=== PATIENT | male | born 1960 | race Caucasian/White ===

== ENCOUNTER 2025-02-20 10:56 | Emergency (ER) | payer BC, SELFPAY ==
[2025-02-20 11:04] VITALS: BP 122/75; PULSE 78; RESP 20; TEMP 37.3; O2SAT 100
--- NOTE | 2025-02-20 11:36 | ED.FEVER ---
HPI - Fever General Chief Complaint: Fever Stated Complaint: Body Aches/Fever/Back Pain Time Seen by Provider: 02/20/25 11:36 Mode of arrival: ambulatory Limitations: no limitations History of Present Illness HPI Narrative: 64-year-old male presents with concern for fever, body aches, headache. He reports symptoms started 1 week ago. Reports he initially had higher fever, vomiting. Reports he vomited for about 3 days once a day. He denies any recent vomiting, diarrhea. He denies runny nose, stuffy nose, cough, sore throat, ear pain. He denies dysuria, frequency, urgency, hematuria. He reports he had dark-colored urine earlier in the week but he increased his fluid intake and it is not clear. He reports he took Tylenol ibuprofen. MD elicited complaint: fever Related Data Home Medications ?Medication ?Instructions ?Recorded ?Confirmed ?Last Taken ?Type No Home Medications 02/20/25 02/20/25 Unknown History Allergies Allergy/AdvReac Type Severity Reaction Status Date / Time No Known Allergies Allergy Verified 02/20/25 11:10 Review of Systems Review of Systems: CONSTITUTIONAL: Denies malaise, chills, sweats. Reports fever. EYES: Denies visual changes, redness, or discharge. ENT: Denies rhinorrhea, congestion, sinus pain, otalgia or sore throat. CARDIOVASCULAR: Denies chest pain, palpitations, or edema. RESPIRATORY: Denies cough or dyspnea. GASTROINTESTINAL: Denies abdominal pain, diarrhea, bloody, or mucous stools. Reports history of nausea and vomiting earlier this week GENITOURINARY: Denies dysuria or hematuria. Reports history of dark color urine earlier this week SKIN: Denies rash or itching. MUSCULOSKELETAL: Reports back pain, myalgia. She denies unilateral joint pain NEUROLOGIC: Denies numbness, weakness. Reports headache. PSYCHIATRIC: Denies anxiety or depression. All systems reviewed & are unremarkable except as noted in HPI and below PMFSH Comments At time of signature, agree with nursing past medical, surgical, social and family history. There is no relevant family history pertinent to the presenting complaint Exam Narrative: GENERAL: Well-appearing, well-nourished, and in no acute distress. HEAD: Normocephalic, atraumatic. EYES: PERRLA, sclera clear, and EOMI. No nystagmus. ENT: Nares clear, turbinates pink, no rhinorrhea or epistaxis. Mucous membranes moist. TM pearly merino with sharp light reflex bilaterally; no tragal tenderness. Oropharynx without erythema or lesions. Tonsils not enlarged and without exudate. NECK: Supple. No lymphadenopathy. No jugular venous distension, thyromegaly, or carotid bruits. Carotids were easily palpable bilaterally. CHEST: No respiratory distress. Clear to auscultation. No bony deformities, no asymmetry. Speaks in full sentences. HEART: Regular rate and rhythm. No murmur heard. Normal peripheral pulses. ABDOMEN: Soft, nontender, nondistended, normal active bowel sounds, no palpable masses. EXTREMITIES: Normal range of motion. No edema. Normal strength and sensation. SKIN: Warm, dry, no visible rash. NEURO: Alert and oriented x3. No focal deficits. Cranial nerves II through XII grossly intact PSYCH: Normal mood and affect Course Course Emergency Course: Patient was given referral for primary care for further evaluation of his symptoms. Patient is aware of, understands and agrees to treatment plan. Anticipatory guidance given. Patient agrees to follow-up as directed and is aware of reasons to seek care at the emergency department. Portions of this record may have been created with voice recognition software Level of Care: Express Care Visit Vital Signs Vital signs: Vital Signs Temperature 99.1 F 02/20/25 11:04 Pulse Rate 78 02/20/25 11:04 Respiratory Rate 20 02/20/25 11:04 Blood Pressure 122/75 02/20/25 11:04 Pulse Oximetry 100 02/20/25 11:04 Oxygen Delivery Room Air 02/20/25 11:04 Temperature 99.1 F 02/20/25 11:04 Pulse Rate 78 02/20/25 11:04 Respiratory Rate 20 02/20/25 11:04 Blood Pressure 122/75 02/20/25 11:04 Pulse Oximetry 100 02/20/25 11:04 Oxygen Delivery Room Air 02/20/25 11:04 Reviewed. MDM - Fever MDM Narrative Medical decision making narrative: I evaluated this patient in the express care. History is obtained from patient who is an independent historian and physical exam was performed.? Available medical records were reviewed. ? Exam findings and relevant testing show no acute concerns or changes; patient is non-toxic appearing and is in no distress. ? Differential diagnosis and treatment plan were discussed with the patient. Patient agrees with discussion and after shared medical decision making agrees with plan of care. All questions were answered to the patient's satisfaction. Patient is appropriate for outpatient treatment and follow-up. Critical Care Time Critical Care Time Critical Care Time: No Discharge Plan Discharge Clinical Impression: Fever Patient Disposition: Home Condition: Stable Instructions: Fever in Adults (ED) Additional Instructions: Your exam overall is normal. Your flu and COVID tests are negative You may have a viral illness causing your symptoms. 1) Please follow-up with your primary care doctor in the next 1-2 days. 2) If you have any worsening of symptoms or any other urgent concerns please go to the ER. 3) Please take continue taking your home medications as usual. 4) Please read and follow information included in discharge instructions. Having an established primary care provider is essential to your health. Please call [phone] for help finding a primary care provider in your area that accepts your insurance. Patient Language: [place] Zeal[place] Prescriptions: No Action No Home Medications Follow-up/Referrals: Wade Jansen MD [Physician] - (fever of unknown origin for 1 week, uro 4.0 on UA) PHYSICIAN,AUTO MECHANIC SUPERVISOR [Primary Care Provider] - Stand Alone Forms: Work/School Release IP Time of Disposition: 12:26
[2025-02-20 12:01] LABS: EDUAAPPEAR Clear; EDUABILI Negative (Negative); EDUABLOOD Negative (Negative); EDUACOLOR1 Dark; EDUAGLUCOSE Negative (Negative); EDUAKETONE Negative (Negative); EDUALEUKO Negative (Negative); EDUANITRATE Negative (Negative); EDUAPROTEIN 1+ (Negative)
== END 2025-02-20 12:32 | disposition home or self-care (01) ==
PROVIDERS: Emergency Provider Nurse Practitioner
DX: R50.9 Fever, unspecified (principal)
CPT/HCPCS: 81003; 99212; G0463